=== PATIENT | male | born 1970 | race Two or more races ===

== ENCOUNTER 2025-03-13 16:20 | Outpatient (REF) | payer OTHER, SELFPAY | END 2025-03-13 16:21 | disposition home or self-care (01) | LOC: HO.SH 16:20 | PROVIDERS: Visit Provider Physician Assistant | DX: Z01.118 Encounter for examination of ears and hearing with other abnormal findings (principal); H90.3 Sensorineural hearing loss, bilateral | CPT/HCPCS: 92557 ==

== ENCOUNTER 2025-03-26 08:44 | Outpatient (AMB) | payer OTHER, SELFPAY ==
--- NOTE | 2025-03-26 08:46 | MHC.OFFVIS ---
Vital Signs 03/26/25 08:54 Height 5 ft 7.72 in Weight 212 lb BMI 32.5 BP 132/70 Blood Pressure Location Rt brachial Position Sitting Pulse 80 Pulse Source Pulse Oximeter Pulse Oximetry (%) 100 Oxygen Delivery Method Room Air Intake Visit Reasons: Lumbar back disease Intake Note: Pain today 01/06 Payment Analyst Required: Yes Payment Analyst Language: Supervisor Drying And Softening Services: Payment Analyst Present Payment Analyst Name: Martha #[id number] Information Interpreted: non-clinical & clinical Accompanied by: Self / Same As Patient Allergies No Known Allergies Allergy (Verified 03/26/25 08:51) Medication List - Last Reconciled 03/26/25 by Mela Leung, CONCRETE CONVEYOR OPERATOR ibuprofen 200 mg PO Q6H PRN HPI Comments Details: The patient is a 55-year-old male presenting with chronic low back pain. The pain is described as sharp and stabbing, primarily located in the mid and lower back, and has been present for several years. The patient reports difficulty with activities such as putting on socks and pants, and bending down due to the pain. Denies any radiation of back pain to his lower extremities. He does report separate right ankle pain s/p ankle surgery in 2006 in [place]. He attributes this to sports related injuries from many years of playing soccer and football. Patient reports he is starting physical therapy at [place] for right ankle pain and has been seen by Orthopedics for this. The patient has a history of a lumbar herniated disc diagnosed approximately five years ago, with no specific inciting injury reported. The patient has not undergone any imaging studies in the [place] since moving from [place] three years ago, where the last imaging was performed five years ago. The patient also has flat feet and has not used orthopedic shoes consistently, which may contribute to his symptoms. 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 The patient has no significant medical history and reports occasional alcohol consumption. He underwent surgery on his right tibia and fibula approximately 20 years ago in [place]. - Onset: Pain has been present for several years. - Quality: Described as sharp and stabbing. - Location: Primarily in the middle of the back. - Exacerbating factors: Bending, lifting heavy objects, and physical activities at work. - Relieving factors: Rest and ibuprofen. - Interference: Difficulty with putting on socks and pants, bending down. - Affect: Pain impacts daily activities such as dressing and bending. - Analgesia: Currently using ibuprofen for pain relief. Rest, activity modifications, heat therapy - Adverse Effects: No adverse effects from ibuprofen reported. - Activities of Daily Living: Pain affects ability to perform work-related tasks and daily activities. - Aberrant Drug Related Behaviors: No aberrant behaviors reported. [facility] Medical History (Updated 03/26/25 @ 12:22 by KATARZYNA Ramos) Chronic low back pain Lumbar disc herniation Surgical History (Updated 03/26/25 @ 09:08 by KATARZYNA Ramos) History of ankle surgery (~2006) Review of Systems Const Details: - Musculoskeletal: Reports sharp, stabbing back pain, difficulty bending, and pain with certain movements. Denies numbness or tingling. Chronic right ankle pain s/p surgery 2006. - Neurological: Denies numbness or tingling, weakness, bladder or bowel dysfunction or saddle anesthesia. All systems reviewed & are unremarkable except as noted in HPI and below Physical Exam Vital Signs: Last Vital Signs Pulse 80 03/26/25 08:54 BP 132/70 03/26/25 08:54 Pulse Ox 100 03/26/25 08:54 Oxygen Delivery Method Room Air 03/26/25 08:54 BMI result Body Mass Index 32.5 General: Appears afebrile. Alert and oriented. Mood and affect appropriate. Follows and participates in conversation appropriately. Respiratory effort is unlabored. No cough. Able to transition from sit to stand unassisted. Ambulates with normal heel strike and toe off on the left, right ankle pain with h/o previous ankle surgery. General: Yes no CVA tenderness Back/Spine/Pelvis Other: Limited lumbar ROM due to pain. Normal gait, no limping. Demonstrates 5/5 strength of quadriceps bilaterally as well as flexion/dorsiflexion of bilateral feet against resistance. 2+ pedal pulses bilaterally. Straight leg rise with dorsiflexion negative bilaterally. +2 patellar and +1 achilles reflexes bilaterally. Facet loading test positive bilaterally. Chase?s is negative bilaterally. No groin pain with I/E hip rotations. Valsalva maneuver negative. Back: no CVA tenderness Cervical Spine: cervical ROM normal, No cervical muscular tenderness, No Cervical spine tenderness and No step off deformity Thoracic/Lumbar Spine: thoracic and lumbar spine normal to inspection, No Thoracic/lumbar spine scar(s), Lasegue's sign negative, straight leg raise negative bilaterally, pain with thoraco-lumbar ROM, paraspinal muscle tenderness, thoraco-lumbar ROM limited, No thoracic spinal tenderness and lumbar spinal tenderness (L4-S1) Sacroiliac joints: bilaterally nontender Extrem General: Yes capillary refill normal, Yes no clubbing, cyanosis or edema and Yes no calf tenderness Right lower extremity: ankle (Well healed incisions with normal scarring) Details: normal to inspection, tenderness Location: of the lateral malleolus and of the medial malleolus and no edema; no swelling and no unusual warmth Results Reviewed Results Reviewed: XR THORACIC SPINE 03/26/25 CLINICAL INFORMATION: M54.6 - Pain in thoracic spine COMPARISON: None available. TECHNIQUE: AP, lateral and swimmer's projection. FINDINGS: Multilevel syndesmophyte formation and marginal osteophyte formation throughout the axial skeleton. Mild endplate sclerosis at multiple levels. There is no acute cortical disruption or gross malalignment. No lytic or blastic lesions IMPRESSION: Multilevel spondylosis without acute fracture or listhesis. XR LUMBAR SPINE 03/26/25 CLINICAL INFORMATION: Low back pain. TECHNIQUE: AP, oblique and lateral views. COMPARISON: None FINDINGS: Small marginal osteophyte formation and mild endplate sclerosis at multiple levels of the axial skeleton. Syndesmophyte formation L3-4. There is preservation of the intervertebral disc height. No acute cortical disruption or malalignment. No lytic or blastic lesions. Sacralized vertebra. Rudimentary rib, T12. IMPRESSION: Sacralized vertebra. No acute fracture or dislocation. Multilevel thoracolumbar spondylosis. Assessment & Plan Assessment & Plan (1) Chronic low back pain: Code(s): M54.50 - Low back pain, unspecified; G89.29 - Other chronic pain Category: Medical (2) Thoracic back pain: Code(s): M54.6 - Pain in thoracic spine Category: Medical (3) History of herniated intervertebral disc: Code(s): Z87.39 - Personal history of other diseases of the musculoskeletal system and connective tissue Category: Medical (4) Spondylosis of thoracolumbar spine: Code(s): M47.815 - Spondylosis without myelopathy or radiculopathy, thoracolumbar region Category: Medical Plan The plan includes initiating physical therapy as the first step in managing the patient's chronic low back pain, as conservative treatment is required before considering non-invasive interventional procedures. The patient will be referred to a physical therapy facility close to his home to accommodate his work schedule. Thoracic and lumbar spine xray taken after today's visit, noted for multilevel thoracolumbar spondylosis. The patient will continue using ibuprofen for pain management and will be prescribed lidocaine patches, pending insurance approval. Patient has pending PT for chronic right ankle pain with h/o ankle surgery and has underwent Orthopedic evaluation per patient. Follow-up will be scheduled after the completion of physical therapy to evaluate progress and discuss further treatment options if necessary. Patient was informed and verbally consented to the use of an ambient scribe for clinic note documentation during this visit. Orders: Orders PT Evaluation and Treatment Today G89.29 - Other chronic pain, M47.815 - Spondylosis without myelopathy or radiculopathy, thoracolumbar region, M54.50 - Low back pain, unspecified, M54.6 - Pain in thoracic spine, Z87.39 - Personal history of other diseases of the musculoskeletal system and connective tissue XR thoracic spine 3V Today M54.6 - Pain in thoracic spine XR lumbar spine 4V min Today G89.29 - Other chronic pain, M47.816 - Spondylosis without myelopathy or radiculopathy, lumbar region, M54.50 - Low back pain, unspecified Medications: New lidocaine 5% 1 patch topical DAILY 30 ea 1RF pain 30 days G89.29 - Other chronic pain, M47.816 - Spondylosis without myelopathy or radiculopathy, lumbar region, M54.50 - Low back pain, unspecified, M54.6 - Pain in thoracic spine Patient Instructions: I discussed with the patient the importance of starting physical therapy as a conservative treatment for his chronic low back pain before considering more interventional treatment options such as injections, peripheral nerve stimulation or nerve ablation procedures. We also talked about the need for x-rays to evaluate the current condition of his spine and the potential use of lidocaine patches for pain relief, pending insurance approval. I advised the patient to continue using ibuprofen and to follow up after completing physical therapy to assess his progress and discuss further treatment options. Coding Level of Care Code New Pt Level 4 (14158) Diagnoses Chronic low back pain M54.50; G89.29 Thoracic back pain M54.6 History of herniated intervertebral disc Z87.39 Spondylosis of thoracolumbar spine M47.815
[2025-03-26 08:54] VITALS: BP 132/70; PULSE 80; O2SAT 100; BMI 32.5
--- OUTSIDE RECORDS SUMMARY | 2025-03-26 09:14 | XMS_ITS | Clinical Summary ---
Author Organization [facility] Address [address] [place] [address] Care Team Providers Care Dairy Tester Name Role Phone Sarah Lizarraga PA-C Primary Care Provider Source Comments PLEASE NOTE, if this patient is a minor, it may be UNLAWFUL to discuss sensitive information that is contained in these records (such as FAMILY PLANNING, MENTAL HEALTH or SUBSTANCE ABUSE) with the minor patient's parent or other person without the patient's specific authorization.[facility] Allergies No known active allergies Medications acetaminophen (TYLENOL 8 HOUR) 650 mg CR tabletIndication s:Immunization due Take 650 mg by mouth every 8 (eight) hours as needed for pain Active lactase (LACTAID) 3,000 unit tabletIndication s:Routine general medical examination at a health care facility Take 2 Tablets by mouth 3 (three) times daily with meals 540 Tablet 4 11/10/2024 Active Active Problems Problem Noted Date Diagnosed Date Mixed hyperlipidemia 02/05/2025 Pre-diabetes 02/05/2025 H. pylori infection 10/202411/13/2024 Lumbar disc disease 05/11/2024 Hearing loss 05/11/2024 Overview (05/11/2024): Uses bilateral hearing aides 3yrs -- states it is genetic, runs in my family. Encounters Date Type Department Care Team Description 03/07/2025 7:40 AM EDT Telemedicine Visit [address] [phone] Sarah Lizarraga PA-C 03/07/2025 Interim Notes [address] [phone] Debo Graham MA 02/05/2025 9:00 AM EDT Telemedicine Visit [address] [phone] Sarah Lizarraga PA-C from Last 3 Months Immunizations Immunization Administration Dates Next Due Hep B,adult,adjuvanted (HEPLISAV) 06/15/2024,07/2024 Influenza (FLUBLOK),recombinant,injectable,preservative Free 05/11/2024 Pfizer COVID-19 (Comirnaty), Mrna, Lnp-s, Pf, Abebe-sucrose, 30 Mcg/0.3 Ml, 12yr+ 05/11/2024 Family History Medical History Relation Name Comments Unknown Father Breast cancer Mother No Known Problems Son x2 Relation Name Status Comments Father Alive Mother Alive Son x2 Social History Tobacco Use Types Packs/Day Years Used Date Smoking Tobacco: Never Passive Smoke Exposure: Never Smokeless Tobacco: Never Tobacco Cessation:Counseling Given: Not Answered Alcohol Use Standard Drinks/Week Comments Not Currently 0 (1 standard drink = 0.6 oz pur e alcohol) occ Social Connections Answer Date Recorded How often do you feel lonely or isolated from th ose around you? 1 02/05/2025 Financial Resource Strain Answer Date R ecorded Hard to pay for: Food 1 02/05/2025 Stress Answer Date Recorded Do you feel these kinds of stress these days? 1 02/05/2025 Physical Activity Answer Date Recorded Physical Activity 0 05/11/2024 Food Insecurity Answer Date Recorded Hard to pay for: Food 1 02/05/2025 Transportation Needs Answer Date Record ed Hard to pay for: Transportation 1 02/05/2025 Housing Stability Answer Date Recorded Hard to pay for: Rent/Mortgage payment 1 02/05/2025 Safety and Environment Answer Date Finn rded Safety 0 05/11/2024 Utilities Answer Date Recorded Hard to pay for: Utilities 1 02/05 Employment Answer Date Recorded Stress 0 05/11/2024 Sex and Gender Information Value Date Recorded Sex Assigned at Male 12/31/2023 7:47 AM PDT Legal Sex Male 7:46 AM PDT Gender Identity Male 12/31/2023 7:47 AM PDT Sexual Orientation Straight 12/31/2023 7: 47 AM PDT Last Filed Vital Signs Vital Sign Reading Time Taken Comments Blood Pressure 102/60 11/10/2024 2:58 PM EDT Pulse 98 11/10/2024 2:58 PM EDT Temperature 36.9 C (98.5 F) 11/10/2024 2:58 PM EDT Respiratory Rate 16 11/10/2024 2:58 PM EDT Oxygen Saturation 97% 11/10/2024 2:58 PM EDT Inhaled Oxygen Concentration - - Weight 112.5 kg (248 lb) 11/10/2024 2:58 PM EDT Height - - Body Mass Index - - Plan of Treatment Health Maintenance Due Date Last Done Comments Anxiety Screening [address] CT Colonography 02/09/2017 FIT/gFOBT 02/09/2017 Fecal DNA 02/09/2017 Flexible Sigmoidoscopy 02/09/2017 Imm-Pneumococcal 50+ (1 of 1 - PCV) 02/09/2022 Imm-Influenza (#1) 2025 05/11/2024 Imm-DTaP/Tdap/Td (1 - Tdap) 05/08/2025 Postponed from 02/09/1991 (Patient postponement) Imm-Zoster, Recombinant (1 of 2) 05/08/2025 Postponed from 02/09/2022 (Patient postponement) Dental BW 07/15/2025 07/13/2024 Dental Examination 07/15/2025 07/13/2024 Dental Perio Charting 07/15/2025 07/13/2024 Dental Prophy 08/04/2025 08/02/2024 Annual Wellness (Adult): Indicated (All Coverage) 11/10/2025 11/10/2024 Hypertension Screening (#1) 11/10/2025 Diabetes Screening 2026 2025, 0 2025, 11/11/2024, Additional history exists Tobacco Screening 03/07/2026 03/07/2025 Dental FMX/Pano 07/15/2029 07/13/2024 Lipid Screening 2030 2025, 10/28, 05/13/2024 Colonoscopy 01/30/2035 01/30/2025 Colorectal Cancer Screening 01/30/2035 [id number] Completed 05/11/2024 HIV Screening Completed 05/13/2024 Hepatitis C Screening Completed 05/14/2024, 024 Imm-Hepatitis B Completed 06/15/2024, 05/11/2024 Alcohol and Drug Screen Completed 02/05/2025, 05/11 Depression Annual Screen Completed 02/05/2025, 04/30 Procedures Procedure Name Priority Date/Time Associated Diagnosis Comments REFERRAL TO AUDIOLOGY Routine 03/13/2025 3:00 AM EDT Bilateral hearing loss, unspecified hearing loss type REFERRAL SCANNED DOCUMENT 03/07/2025 3:00 AM EDT LIPID PANEL Routine 2025 9:09 AM EDT Pre-diabetes HEMOGLOBIN GLYCOSYLATED A1C Routine 2025 9:09 AM EDT Pre-diabetes COMPREHENSIVE METABOLIC PANEL Routine 2025 9:09 AM EDT Pre-diabetes REFERRAL TO GASTROENTEROLOGY Routine 01/30/2025 3:00 AM EDT Epigastric pain Abdominal bloating Colon cancer screening HISTORIC COLONOSCOPY 01/30/2025 3:00 AM EDT REFERRAL TO ORTHOPEDICS Routine 01/24/20 3:00 AM EDT Achilles tendinitis of both lower extremities PROPHYLAXIS - ADULT Routine 08/02/2024 4 :20 PM EST Caries Fracture of crown, enamel, and dentin of tooth without pulp exposure Full INTRAORAL - COMP SERIES OF RADIOGRAPHIC IMAGES Routine 07/13/2024 4:00 PM EST Caries Fracture of crown, enamel, and dentin of tooth without pulp exposure Full COMP ORAL EVALUATION - NEW/ESTABLISHED PATIENT Routine 07/13/2024 4:00 PM EST [facility] HIV 1/2 AG & AB W/RFLX (4TH GEN) Routine 05/13/2024 9:44 AM EDT Physical exam HEPATITIS C AB W/RFLX HCV RNA, QT, RT PCR Routine 05/13/2024 9:43 AM EDT Physical exam from Last 3 Months or Most Recently Relevant to Health Maintenance Results * REFERRAL TO AUDIOLOGY (03/13/2025 3:00 AM EDT) 03/13/2025 3:00 AM EDT Sarah Lizarraga PA-C REFERRAL Final Result * REFERRAL SCANNED DOCUMENT (03/07/2025 3:00 AM EDT) 03/07/2025 3:00 AM EDT Sarah Lizarraga PA-C SCAN REFERRAL Final Result * (ABNORMAL) HEMOGLOBIN GLYCOSYLATED A1C Routine (2025 9:09 AM EDT) HEMOGLOBIN A1C 6.2(H) <5.7 % [facility] Comment: For someone without known diabetes, a hemoglobin A1c value between 5.7% and 6.4% is consistent with prediabetes and should be confirmed with a follow-up test. For someone with known diabetes, a value <7% indicates that their diabetes is well controlled. A1c targets should be individualized based on duration of diabetes, age, comorbid conditions, and other considerations. This assay result is consistent with an increased risk of diabetes. Currently, no consensus exists regarding use of hemoglobin A1c for diagnosis of diabetes for children. Blood Blood / Unknown 2025 9 :09 AM EDT 2025 9:11 AM EDT Narrative [facility] - 02/11/2025 7:30 AM EDT FASTING:YES Sarah Lizarraga PA-C LAB - BLOOD DRAW Edited Resu lt - Final [facility] [address] [address], [facility] [address] [phone] * (ABNORMAL) LIPID PANEL Routine (2025 9:09 AM EDT) CHOLESTEROL, TOTAL 234(H) <200 mg/dL [facility] HDL CHOLESTEROL 42 > OR = 40 mg/dL [facility] TRIGLYCERIDES 162(H) <150 mg/dL [facility] LDL-CHOLESTEROL 161(H) 99 mg/dL (calc) [facility] Comment: Reference range: <100 Desirable range <100 mg/dL for primary prevention; <70 mg/dL for patients with CHD or diabetic patients with > or = 2 CHD risk factors. LDL-C is now calculated using the [place] calculation, which is a validated novel method providing better accuracy than the Friedewald equation in the estimation of LDL-C. Asaf CARDONA et al. MAHNAZ. 2013;310(19): 2651-5280 (http://education.[employer]/faq/UWV450) CHOL/HDLC RATIO 5.6(H) <5.0 (calc) [facility] NON-HDL CHOLESTEROL 192(H) <130 mg/dL (calc) [facility] Comment: For patients with diabetes plus 1 major ASCVD risk factor, treating to a non-HDL-C goal of <100 mg/dL (LDL-C of <70 mg/dL) is considered a therapeutic option. Blood Blood / Unknown 2025 9 :09 AM EDT 2025 9:11 AM EDT Narrative [facility] - 02/11/2025 7:30 AM EDT FASTING:YES us Sarah Lizarraga PA-C LAB - BLOOD DRAW Final Resul t [facility] [address] [place] [phone], [facility] [address] [place] [phone] * (ABNORMAL) COMPREHENSIVE METABOLIC PANEL Routine (2025 9:09 AM EDT) GLUCOSE 110(H) 65 - 99 mg/dL [facility] Comment: Fasting reference interval For someone without known diabetes, a glucose value between 100 and 125 mg/dL is consistent with prediabetes and should be confirmed with a follow-up test. UREA NITROGEN (BUN) 13 7 - 25 mg/dL [facility] CREATININE (blood) 0.94 0.70 - 1.30 mg/dL [facility] EGFR 97 > OR = 60 mL/min/1. 73m2 [facility] BUN/CREATININE RATIO SEE NOTE: [facility] Comment: Not Reported: BUN and Creatinine are within reference range. SODIUM 141 135 - 146 mmol/L [facility] POTASSIUM 4.5 3.5 - 5.3 mmol/L [facility] CHLORIDE 104 98 - 110 mmol/L [facility] CARBON DIOXIDE 28 20 - 32 mmol/L [facility] CALCIUM 8.9 8.6 - 10.3 mg/dL [facility] PROTEIN, TOTAL 7.2 6.1 - 8.1 g/dL [facility] ALBUMIN 4.6 3.6 - 5.1 g/dL [facility] GLOBULIN 2.6 1.9 - 3.7 g/dL (calc) [facility] ALBUMIN/GLOBULI N RATIO 1.8 1.0 - 2.5 (calc) [facility] BILIRUBIN, TOTAL 0.6 0.2 - 1.2 mg/dL [facility] ALKALINE PHOSPHATASE 66 35 - 144 U/L [facility] AST 14 10 - 35 U/L [facility] ALT 22 9 - 46 U/L [facility] Blood Blood / Unknown 2025 9 :09 AM EDT 2025 9:11 AM EDT Narrative [facility] - 02/11/2025 7:30 AM EDT FASTING:YES us Sarah Lizarraga PA-C LAB - BLOOD DRAW Final Resul t [facility] [address] [address], [facility] [address] [phone] * HISTORIC COLONOSCOPY (01/30/2025 3:00 AM EDT) 01/30/2025 3:00 AM EDT us Sarah Lizarraga PA-C PROCEDURES Final Result * REFERRAL TO GASTROENTEROLOGY (01/30/2025 3:00 AM EDT) 01/30/2025 3:00 AM EDT us Sarah Lizarraga PA-C REFERRAL Final Result * REFERRAL TO ORTHOPEDICS (01/23/2025 3:00 AM EDT) 01/23/2025 3:00 AM EDT Sarah Rodgersmaddie GRAF-Ara REFERRAL Final Result * HIV 1/2 AG & AB W/RFLX (4TH GEN) (05/13/2024 9:44 AM EDT) HIV AG/AB, 4TH GEN NON-REAC TIVE NON-REAC TIVE [facility] Comment: HIV-1 antigen and HIV-1/HIV-2 antibodies were not detected. There is no laboratory evidence of HIV infection. PLEASE NOTE: This information has been disclosed to you from records whose confidentiality may be protected by state law. If your state requires such protection, then the state law prohibits you from making any further disclosure of the information without the specific written consent of the person to whom it pertains, or as otherwise permitted by law. A general authorization for the release of medical or other information is NOT sufficient for this purpose. For additional information please refer to http://education.Ledzworld.Readbug/faq/AGM734 (This link is being provided for informational/ educational purposes only.) The performance of this assay has not been clinically validated in patients less than 2 years old. Blood Blood / Unknown 05/13/2024 9 :44 AM EDT 05/13/2024 9:45 AM EDT Narrative [facility] - 05/14/2024 4:38 AM EDT FASTING:YES Thomas Marky FNP LAB - BLOOD DRAW Final Resul t [facility] [address] [address], [facility] [address] [phone] * HEPATITIS C AB W/RFLX HCV RNA, QT, RT PCR (05/13/2024 9:43 AM EDT) HEPATITIS C ANTIBODY NON-REACT DARVIN NON-REACT DARVIN [facility] Comment: HCV antibody was non-reactive. There is no laboratory evidence of HCV infection. In most cases, no further action is required. However, if recent HCV exposure is suspected, a test for HCV RNA (test code 45126) is suggested. For additional information please refer to http://education.[employer] Direct/faq/GUT41t0 (This link is being provided for informational/ educational purposes only.) Blood Blood / Unknown 05/13/2024 9 :43 AM EDT 05/13/2024 9:43 AM EDT Narrative [facility] - 05/14/2024 5:38 AM EDT FASTING:YES Thomas Negro [employer] LAB - BLOOD DRAW Final Resul t [facility] [address] [address], [facility] [address] [phone] from Last 3 Months or Most Recently Relevant to Health Maintenance [place] INCLUDE 234 BEDS AT [facility] DENTAL [employer] Member Subscriber Plan / Payer (Ef fective 2024-Present) Name:Reginald Cheng Relation to Subscriber:Self Name:Kristopher Reginald Larsen Payer ID:[id number] Type:Indemnity Address: [facility] [address] [place] [address] Care Teams Dairy Tester Relationship Specialty Start Date End Date Sarah Lizarraga PA-C [address] [place] [phone] PCP - General Internal Medicine 12/14/24
--- OUTSIDE RECORDS SUMMARY | 2025-03-26 09:14 | XMS_ITS | Clinical Summary ---
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 for 14 days 025 Active Dairy-Aid 3,000 unit tablet 025 Active ondansetron ODT (ZOFRAN-ODT) 4 mg disintegrating tablet TAKE 1 TABLET BY MOUTH EVERY 8 HOURS NEEDED FOR NAUSEA AND VOMITING FOR 10 DAYS Active polyethylene glycol (Golytely) 236-22.74-6.74 -5.86 gram solution Take 4L by mouth once for one dose. May substitue any PEG. Starting at 6PM the night before your procedure drink 1 8oz glasses at your own pace until you complete half of the gallon. Finish 2nd half of the gallon 5 hours before your procedure. 4000 mL Active Additional Information Patient not taking.Reported on 03/07/2025 bisacodyL (DULCOLAX) 5 mg EC tablet Take 2 tablets by mouth right before beginning bowel prep. See instructions provided by the office 2 tablet Active Additional Information Patient not taking.Reported on 03/07/2025 lidocaine (XYLOCAINE) 5 % ointment Apply topically 2 (two) times a day if needed for mild pain. 35.44 g 025 2025 Active lidocaine (XYLOCAINE) 2 % gel Apply topically 2 (two) times a day if needed for mild pain. 30 mL 025 2024 Discontinued bisacodyL (DULCOLAX) 10 mg suppository Insert 1 suppository (10 mg total) into the rectum 1 (one) time each day for 12 days. 12 suppository 025 2024 Discontinued bisacodyL (DULCOLAX) 10 mg suppository Insert 1 suppository (10 mg total) into the rectum 1 (one) time each day for 12 days. 12 suppository 025 2024 lidocaine (XYLOCAINE) 2 % gel Apply topically 2 (two) times a day if needed for mild pain. 30 mL 025 2024 Discontinued( Cost of medication) Encounters Date Type Department Care Team Description 03/14/2025 4:30 PM EDT Evaluation [address] [phone] Matthew Verde M, PT Achilles tendinitis of both lower extremities; Equinus contracture of left ankle; Chronic pain of right ankle 03/13/2025 9:07 AM EDT - 03/13/2025 11:08 AM EDT Emergency [facility] Emergency [address] [place] [phone] Eliazar Jarquin MD Hemorrhoids, unspecified hemorrhoid type (Primary Dx) Discharge Disposition: Home or Self Care 03/13/2025 Telephone Gastroenterology [address] [place] [phone] Amanda Catalan DO ER follow up 03/07/2025 1:30 PM EDT Office Visit Gastroenterology [facility] [address] [place] [phone] Amanda Catalan DO Bleeding internal hemorrhoids (Primary Dx) 01/30/2025 3:22 PM EDT Anesthesia Event [facility] Endoscopy [address] [place] [phone] Naveed Cavanaugh DO 01/30/2025 1:07 PM EDT - 01/30/2025 11:59 PM EDT Hospital Encounter [facility] Endoscopy [address] [place] [phone] Amanda Catalan DO Johnson, Lorraine, CRNA Korobkov, Vitaliy, DO Esophageal dysphagia; Helicobacter pylori (H. pylori) infection; Rectal bleeding Discharge Disposition: Home or Self Care 01/30/2025 Telephone Gastroenterology [facility] 175 [facility] 175 [facility] [address] [place] [address] Josephine Romero MA APPOINTMENT 01/23/2025 2:45 PM EDT Consult Orthopedic Surgery [facility] 250 175 [facility] [address] [place] [phone] Alfonso Buck, DPM Achilles tendinitis of both lower extremities (Primary Dx); Pes planus of both feet; Equinus contracture of left ankle; Plantar fasciitis from Last 3 Months Social History Tobacco Use Types Packs/Day Years Used Date Smoking Tobacco: Never Smokeless Tobacco: Never Tobacco Cessation:Counseling Given: Not Answered Alcohol Use Standard Drinks/Week Comments Never 0 (1 standard drink = 0.6 oz pur e alcohol) Interpersonal Safety Answer Date Record ed Physical Abuse 01/30/2025 Verbal Abuse 01/30/2025 Sex and Gender Information Value Date Recorded Sex Assigned at Not on file Legal Sex Male 12:58 PM EDT Gender Identity Male 11/20/2024 2:59 PM EDT Sexual Orientation Straight 11/20/2024 2: 59 PM EDT Obstetrics History Last Filed Vital Signs Vital Sign Reading Time Taken Comments Blood Pressure 112/80 03/13/2025 8:28 AM EDT Pulse 94 03/13/2025 8:28 AM EDT Temperature 36.8 C (98.3 F) 03/13/2025 8:28 AM EDT Respiratory Rate 17 03/13/2025 8:28 AM EDT Oxygen Saturation 97% 03/13/2025 8:28 AM EDT Inhaled Oxygen Concentration - - Weight 97 kg (213 lb 13.5 oz) 03/13/2025 8:28 AM EDT Height 172 cm (5' 7.72 ) 03/13/2025 8:28 AM EDT Body Mass Index 32.79 03/13/2025 8:28 AM EDT Plan of Treatment Upcoming Encounters Date Type Department Care Team (Late st Contact Info) Description 04/05/2025 5:30 PM EDT Treatment [facility] [address] [phone] Bobby Velasquez, RN SPINE 04/12/2025 5:30 PM EDT Treatment [facility] [address] [phone] Bobby Velasquez, RN SPINE 04/17/2025 5:30 PM EDT Treatment [facility] [address] [phone] Bobby Velasquez, RN SPINE 04/19/2025 5:30 PM EDT Treatment [facility] [address] [phone] Bobby Velasquez, RN SPINE 04/23/2025 5:30 PM EDT Treatment [facility] [address] [phone] Matthew Verde, PT [address] [place] [address] 04/25/2025 5:30 PM EDT Treatment [facility] [address] [phone] Matthew Verde, PT [address] [place] [address] 07/05/2025 8:50 AM EST Office Visit Gastroenterology [facility] 175 [facility] [address] [phone] Amanda Catalan DO [address] [address] Health Maintenance Due Date Last Done Comments DTaP,Tdap,and Td Vaccines (1 - Tdap) 02/09/1991 Pneumococcal Vaccine: 50+ Years (1 of 1 - PCV) 02/09/2022 Zoster Vaccines (1 of 2) 02/09/2022 Depression Screening 08/30/2024 HIV Screening 11/15/2024 Social Influencers of Health Screening 11/15/2024 Influenza Vaccine (#1) 2025 05/11/2024 Colorectal Cancer Screening: Colonoscopy 01/30/2030 01/30/2025 Cholesterol Screening (Lipid Panel) 2030 2025, 2025, 11/11/2024, Additional history exists COVID-19 Vaccine Completed 05/11/2024 Hepatitis C Screening Completed 05/13/2024 Hepatitis B Vaccines Completed 06/15/2024, 05/11/20 24 HIB Vaccines Aged Out No longer eligi ble based on patient's age to complete this topic HPV Vaccines Aged Out No longer eligi ble based on patient's age to complete this topic Hepatitis A Vaccines Aged Out No long er eligible based on patient's age to complete this topic IPV Vaccines Aged Out No longer eligi ble based on patient's age to complete this topic MMR Vaccines Aged Out No longer eligi ble based on patient's age to complete this topic Meningococcal ACWY Vaccine Aged Out N o longer eligible based on patient's age to complete this topic Meningococcal B Vaccine Aged Out No l onger eligible based on patient's age to complete this topic RSV Immunization Patients Under 20 months Aged Out No longer eligible based on patient's age to complete this topic Varicella Vaccines Aged Out No longer eligible based on patient's age to complete this topic Goals Goal Patient Goal Type Associated Problems Recent Progress Patient-Stated? 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 Procedures Procedure Name Priority Date/Time Associated Diagnosis Comments COLONOSCOPY Routine 01/30/2025 3:44 PM EDT Esophageal dysphagia Helicobacter pylori (H. pylori) infection Rectal bleeding EGD Routine 01/30/2025 3:44 PM EDT Esophageal dysphagia Helicobacter pylori (H. pylori) infection Rectal bleeding TISSUE EXAM Routine 01/30/2025 3:28 PM EDT Esophageal dysphagia Helicobacter pylori (H. pylori) infection Rectal bleeding from Last 3 Months Results * COLONOSCOPY [facility]est[facility] - MAC[facility] (01/30/2025 3:44 PM EDT) Anatomical Region Laterality Modality Endoscopy 01/30/2025 3:19 PM EDT Impressions 01/30/2025 3:43 PM EDT - Hemorrhoids found on perianal exam. - Non-bleeding internal hemorrhoids. - One 4 mm polyp in the ascending colon, removed with a cold snare. Resected and retrieved. - The examination was otherwise normal on direct and retroflexion views. Recommendation: - - Discharge patient to home. - High fiber diet. - Continue present medications. - Await pathology results. - Repeat colonoscopy for surveillance based on pathology results. Narrative 01/30/2025 3:43 PM EDT [facility] GI Patient Name: Reginald Larsen Procedure Date: 01/30/2025 3:19 PM Date of : 1970 Age: 54 Gender: Male Note Status: Finalized Attending MD: Amanda Catalan DO, [id number] Procedure Date No Time: 01/30/2025 Procedure: Colonoscopy Indications: Hematochezia Providers: Amanda Catalan DO Referring MD: Sarah Lizarraga PA-C Medicines: Monitored Anesthesia Care Complications: No immediate complications. Estimated blood loss: Minimal. Estimated Blood Loss: Estimated blood loss was minimal. Procedure: Pre-Anesthesia Assessment: - - Prior to the procedure, a History and Physical was performed, and patient medications and allergies were reviewed. The patient is competent. The risks and benefits of the procedure and the sedation options and risks were discussed with the patient. All questions were answered and informed consent was obtained. Patient identification and proposed procedure were verified by the physician, the nurse, the anesthesiologist, the tire cord weaver and the hvac operations technician in the pre-procedure area in the endoscopy suite. Mental Status Examination: alert and oriented. Airway Examination: normal oropharyngeal airway and neck mobility. Respiratory Examination: clear to auscultation. CV Examination: normal. Prophylactic Antibiotics: The patient does not require prophylactic antibiotics. Prior Anticoagulants: The patient has taken no anticoagulant or antiplatelet agents. ASA Grade Assessment: II - A patient with severe systemic disease. After reviewing the risks and benefits, the patient was deemed in satisfactory condition to undergo the procedure. The anesthesia plan was to use monitored anesthesia care (MAC). Immediately prior to administration of medications, the patient was re-assessed for adequacy to receive sedatives. The heart rate, respiratory rate, oxygen saturations, blood pressure, adequacy of pulmonary ventilation, and response to care were monitored throughout the procedure. The physical status of the patient was re-assessed after the procedure. After I obtained informed consent, the scope was passed under direct vision. Throughout the procedure, the patient's blood pressure, pulse, and oxygen saturations were monitored continuously.The Olympus Pediatric Colonoscope was introduced through the anus and advanced to the cecum, identified by appendiceal orifice and ileocecal valve. The colonoscopy was performed without difficulty. The patient tolerated the procedure well. The quality of the bowel preparation was good. Findings: Hemorrhoids were found on perianal exam. Non-bleeding internal hemorrhoids were found during retroflexion. The hemorrhoids were Grade II (internal hemorrhoids that prolapse but reduce spontaneously). A 4 mm polyp was found in the ascending colon. The polyp was sessile. The polyp was removed with a cold snare. Resection and retrieval were complete. Verification of patient identification for the specimen was done. Estimated blood loss was minimal. The exam was otherwise without abnormality on direct and retroflexion views. Procedure Code(s): --- Professional --- 44872, Colonoscopy, flexible; with removal of tumor(s), polyp(s), or other lesion(s) by snare technique Diagnosis Code(s): --- Professional --- K92.1, Melena (includes Hematochezia) D12.2, Benign neoplasm of ascending colon K64.1, Second degree hemorrhoids CPT copyright 2020 [employer]. All rights reserved. The codes documented in this report are preliminary and upon medical biller coder review may be revised to meet current compliance requirements. AMANDA Catalan DO 01/30/2025 3:43:38 PM This report has been signed electronically.Amanda Catalan DO Number of Addenda: 0 Note Initiated On: 01/30/2025 3:19 PM Scope Withdrawal Time: 0 hours 6 minutes 52 seconds Scope In: 3:34:03 PM Scope Out: 3:42:04 PM Endoscopy Department at [facility] - [address] [place] [phone] Procedure Note Amanda Catalan DO - 01/30/2025 [facility] GI Patient Name: Reginald Larsen Procedure Date: 01/30/2025 3:19 PM Date of : 1970 Age: 54 Gender: Male Note Status: Finalized Attending MD: Amanda Catalan DO, [id number] Procedure Date No Time: 01/30/2025 Procedure: Colonoscopy Indications: Hematochezia Providers: Amanda Catalan DO Referring MD: Sarah Lizarraga PA-C Medicines: Monitored Anesthesia Care Complications: No immediate complications. Estimated blood loss: Minimal. Estimated Blood Loss: Estimated blood loss was minimal. Procedure: Pre-Anesthesia Assessment: - - Prior to the procedure, a History and Physicalwas performed, and patient medications and allergieswere reviewed. The patient is competent. The risks and benefits of the procedure and the sedation optionsand risks were discussed with the patient. Allquestions were answered and informed consent was obtained. Patient identification and proposed procedure were verified by the physician, the nurse, the anesthesiologist, the tire cord weaver and thetechnician in the pre-procedure area in the endoscopy suite. Mental Status Examination: alert and oriented.Airway Examination: normal oropharyngeal airway and neck mobility. Respiratory Examination: clear to auscultation. CV Examination: normal. Prophylactic Antibiotics: The patient does not requireprophylactic antibiotics. Prior Anticoagulants: The patient has taken no anticoagulant or antiplatelet agents. ASA Grade Assessment: II - A patient with severesystemic disease. After reviewing the risks and benefits,the patient was deemed in satisfactory condition to undergo the procedure. The anesthesia plan was touse monitored anesthesia care (MAC). Immediately priorto administration of medications, the patient was re-assessed for adequacy to receive sedatives. The heart rate, respiratory rate, oxygen saturations, blood pressure, adequacy of pulmonary ventilation,and response to care were monitored throughout the procedure. The physical status of the patient was re-assessed after the procedure. After I obtained informed consent, the scope was passed under direct vision. Throughout theprocedure, the patient's blood pressure, pulse, and oxygen saturations were monitored continuously.The Olympus Pediatric Colonoscope was introduced through theanus and advanced to the cecum, identified byappendiceal orifice and ileocecal valve. The colonoscopy was performed without difficulty. The patient tolerated the procedure well. The quality of the bowel preparation was good. Findings: Hemorrhoids were found on perianal exam. Non-bleeding internal hemorrhoids were found during retroflexion. The hemorrhoids were Grade II(internal hemorrhoids that prolapse but reducespontaneously). A 4 mm polyp was found in the ascending colon. The polyp was sessile. The polyp was removed with acold snare. Resection and retrieval were complete. Verification of patient identification for the specimen was done. Estimated blood loss wasminimal. The exam was otherwise without abnormality ondirect and retroflexion views. Procedure Code(s): --- Professional --- 20028, Colonoscopy, flexible; with removal of tumor(s), polyp(s), or other lesion(s) by snare technique Diagnosis Code(s): --- Professional --- K92.1, Melena (includes Hematochezia) D12.2, Benign neoplasm of ascending colon K64.1, Second degree hemorrhoids CPT copyright 2020 [employer]. All rights reserved. The codes documented in this report are preliminary and upon medical biller coder reviewmay be revised to meet current compliance requirements. AMANDA Catalan DO 01/30/2025 3:43:38 PM This report has been signed electronically.Amanda Catalan DO Number of Addenda: 0 Note Initiated On: 01/30/2025 3:19 PM Scope Withdrawal Time: 0 hours 6 minutes 52 seconds Scope In: 3:34:03 PM Scope Out: 3:42:04 PM Endoscopy Department at [facility] - [address] [place] [phone] IMPRESSION: - Hemorrhoids found on perianal exam. - Non-bleeding internal hemorrhoids. - One 4 mm polyp in the ascending colon, removedwith a cold snare. Resected and retrieved. - The examination was otherwise normal on directand retroflexion views. Recommendation: - - Discharge patient to home. - High fiber diet. - Continue present medications. - Await pathology results. - Repeat colonoscopy for surveillance based on pathology results. Amanda Catalan DO GI~PROCEDURE ORDERABLES Final Re sult * EGD Anesthesia - MAC; [facility] (01/30/2025 3:44 PM EDT) Anatomical Region Laterality Modality Endoscopy 01/30/2025 3:19 PM EDT Impressions 01/30/2025 3:31 PM EDT - Erythema in the mid esophagus. Biopsied. - Erythematous mucosa in the stomach. Biopsied. - Normal examined duodenum. Recommendation: - Discharge patient to home. - Resume previous diet. - Continue present medications. - Await pathology results. Narrative 01/30/2025 3:31 PM EDT [facility] GI Patient Name: Reginald Larsen Procedure Date: 01/30/2025 3:19 PM Date of : 1970 Age: 54 Gender: Male Note Status: Finalized Attending MD: Amanda Catalan DO, [id number] Procedure Date No Time: 01/30/2025 Procedure: Upper GI endoscopy Indications: Functional Dyspepsia Providers: Amanda Catalan DO Referring MD: Sarah Lizarraga PA-C Medicines: Monitored Anesthesia Care Complications: No immediate complications. Estimated blood loss: Minimal. Estimated Blood Loss: Estimated blood loss was minimal. Procedure: Pre-Anesthesia Assessment: - - Prior to the procedure, a History and Physical was performed, and patient medications and allergies were reviewed. The patient is competent. The risks and benefits of the procedure and the sedation options and risks were discussed with the patient. All questions were answered and informed consent was obtained. Patient identification and proposed procedure were verified by the physician, the nurse, the anesthesiologist, the tire cord weaver and the hvac operations technician in the pre-procedure area in the endoscopy suite. Mental Status Examination: alert and oriented. Airway Examination: normal oropharyngeal airway and neck mobility. Respiratory Examination: clear to auscultation. CV Examination: normal. Prophylactic Antibiotics: The patient does not require prophylactic antibiotics. Prior Anticoagulants: The patient has taken no anticoagulant or antiplatelet agents. ASA Grade Assessment: II - A patient with severe systemic disease. After reviewing the risks and benefits, the patient was deemed in satisfactory condition to undergo the procedure. The anesthesia plan was to use monitored anesthesia care (MAC). Immediately prior to administration of medications, the patient was re-assessed for adequacy to receive sedatives. The heart rate, respiratory rate, oxygen saturations, blood pressure, adequacy of pulmonary ventilation, and response to care were monitored throughout the procedure. The physical status of the patient was re-assessed after the procedure. - - Prior to the procedure, a History and Physical was performed, and patient medications and allergies were reviewed. The patient is competent. The risks and benefits of the procedure and the sedation options and risks were discussed with the patient. All questions were answered and informed consent was obtained. Patient identification and proposed procedure were verified by the physician, the nurse, the anesthesiologist, the tire cord weaver and the hvac operations technician in the pre-procedure area in the endoscopy suite. Mental Status Examination: alert and oriented. Airway Examination: normal oropharyngeal airway and neck mobility. Respiratory Examination: clear to auscultation. CV Examination: normal. Prophylactic Antibiotics: The patient does not require prophylactic antibiotics. Prior Anticoagulants: The patient has taken no anticoagulant or antiplatelet agents. ASA Grade Assessment: II - A patient with severe systemic disease. After reviewing the risks and benefits, the patient was deemed in satisfactory condition to undergo the procedure. The anesthesia plan was to use monitored anesthesia care (MAC). Immediately prior to administration of medications, the patient was re-assessed for adequacy to receive sedatives. The heart rate, respiratory rate, oxygen saturations, blood pressure, adequacy of pulmonary ventilation, and response to care were monitored throughout the procedure. The physical status of the patient was re-assessed after the procedure. After obtaining informed consent, the endoscope was passed under direct vision. Throughout the procedure, the patient's blood pressure, pulse, and oxygen saturations were monitored continuously. The Olympus Gastroscope was introduced through the mouth, and advanced to the third part of duodenum. The upper GI endoscopy was accomplished without difficulty. The patient tolerated the procedure well. Findings: Diffuse mild erythema was found in the mid esophagus. Biopsies were taken with a cold forceps for histology. Estimated blood loss was minimal. Diffuse moderately erythematous mucosa without bleeding was found in the stomach. Biopsies were taken with a cold forceps for histology. Estimated blood loss was minimal. The examined duodenum was normal. Procedure Code(s): --- Professional --- 13491, Esophagogastroduodenoscopy, flexible, transoral; with biopsy, single or multiple Diagnosis Code(s): --- Professional --- K22.89, Other specified disease of esophagus K31.89, Other diseases of stomach and duodenum K30, Functional dyspepsia CPT copyright 2020 [employer]. All rights reserved. The codes documented in this report are preliminary and upon medical biller coder review may be revised to meet current compliance requirements. AMANDA Catalan DO 01/30/2025 3:31:39 PM This report has been signed electronically.Amanda Catalan DO Number of Addenda: 0 Note Initiated On: 01/30/2025 3:19 PM Scope In: Scope Out: Endoscopy Department at [facility] - [address] [place] [phone] Procedure Note Amanda Catalan DO - 01/30/2025 [facility] GI Patient Name: Reginald Larsen Procedure Date: 01/30/2025 3:19 PM Date of : 1970 Age: 54 Gender: Male Note Status: Finalized Attending MD: Amanda Catalan DO, [id number] Procedure Date No Time: 01/30/2025 Procedure: Upper GI endoscopy Indications: Functional Dyspepsia Providers: Amanda Catalan DO Referring MD: Sarah Lizarraga PA-C Medicines: Monitored Anesthesia Care Complications: No immediate complications. Estimated blood loss: Minimal. Estimated Blood Loss: Estimated blood loss was minimal. Procedure: Pre-Anesthesia Assessment: - - Prior to the procedure, a History and Physicalwas performed, and patient medications and allergieswere reviewed. The patient is competent. The risks and benefits of the procedure and the sedation optionsand risks were discussed with the patient. Allquestions were answered and informed consent was obtained. Patient identification and proposed procedure were verified by the physician, the nurse, the anesthesiologist, the tire cord weaver and thetechnician in the pre-procedure area in the endoscopy suite. Mental Status Examination: alert and oriented.Airway Examination: normal oropharyngeal airway and neck mobility. Respiratory Examination: clear to auscultation. CV Examination: normal. Prophylactic Antibiotics: The patient does not requireprophylactic antibiotics. Prior Anticoagulants: The patient has taken no anticoagulant or antiplatelet agents. ASA Grade Assessment: II - A patient with severesystemic disease. After reviewing the risks and benefits,the patient was deemed in satisfactory condition to undergo the procedure. The anesthesia plan was touse monitored anesthesia care (MAC). Immediately priorto administration of medications, the patient was re-assessed for adequacy to receive sedatives. The heart rate, respiratory rate, oxygen saturations, blood pressure, adequacy of pulmonary ventilation,and response to care were monitored throughout the procedure. The physical status of the patient was re-assessed after the procedure. - - Prior to the procedure, a History and Physicalwas performed, and patient medications and allergieswere reviewed. The patient is competent. The risks and benefits of the procedure and the sedation optionsand risks were discussed with the patient. Allquestions were answered and informed consent was obtained. Patient identification and proposed procedure were verified by the physician, the nurse, the anesthesiologist, the tire cord weaver and thetechnician in the pre-procedure area in the endoscopy suite. Mental Status Examination: alert and oriented.Airway Examination: normal oropharyngeal airway and neck mobility. Respiratory Examination: clear to auscultation. CV Examination: normal. Prophylactic Antibiotics: The patient does not requireprophylactic antibiotics. Prior Anticoagulants: The patient has taken no anticoagulant or antiplatelet agents. ASA Grade Assessment: II - A patient with severesystemic disease. After reviewing the risks and benefits,the patient was deemed in satisfactory condition to undergo the procedure. The anesthesia plan was touse monitored anesthesia care (MAC). Immediately priorto administration of medications, the patient was re-assessed for adequacy to receive sedatives. The heart rate, respiratory rate, oxygen saturations, blood pressure, adequacy of pulmonary ventilation,and response to care were monitored throughout the procedure. The physical status of the patient was re-assessed after the procedure. After obtaining informed consent, the endoscope was passed under direct vision. Throughout theprocedure, the patient's blood pressure, pulse, and oxygen saturations were monitored continuously. TheOlympus Gastroscope was introduced through the mouth, and advanced to the third part of duodenum. The upperGI endoscopy was accomplished without difficulty. The patient tolerated the procedure well. Findings: Diffuse mild erythema was found in the midesophagus. Biopsies were taken with a cold forceps forhistology. Estimated blood loss was minimal. Diffuse moderately erythematous mucosa without bleeding was found in the stomach. Biopsies weretaken with a cold forceps for histology. Estimated blood loss was minimal. The examined duodenum was normal. Procedure Code(s): --- Professional --- 07433, Esophagogastroduodenoscopy, flexible, transoral; with biopsy, single or multiple Diagnosis Code(s): --- Professional --- K22.89, Other specified disease of esophagus K31.89, Other diseases of stomach and duodenum K30, Functional dyspepsia CPT copyright 2020 [employer]. All rights reserved. The codes documented in this report are preliminary and upon medical biller coder reviewmay be revised to meet current compliance requirements. AMANDA Catalan DO 01/30/2025 3:31:39 PM This report has been signed electronically.Amanda Catalan DO Number of Addenda: 0 Note Initiated On: 01/30/2025 3:19 PM Scope In: Scope Out: Endoscopy Department at [facility] - [address] [place] [id number] IMPRESSION: - Erythema in the mid esophagus. Biopsied. - Erythematous mucosa in the stomach. Biopsied. - Normal examined duodenum. Recommendation: - Discharge patient to home. - Resume previous diet. - Continue present medications. - Await pathology results. Amanda Catalan DO GI~PROCEDURE ORDERABLES Final Re sult * Tissue exam (01/30/2025 3:28 PM EDT) Final Diagnosis A. Stomach, random sites, biopsy: - Gastric antral and oxyntic type mucosa with patchy chronic gastritis and intestinal metaplasia, negative for dysplasia. - No active gastritis identified. - No Helicobacter pylori identified on hematoxylin and eosin stained sections. B. Esophagus, biopsy: - A minute detached fragment of gastric mucosa with intestinal metaplasia is present, negative for dysplasia (See note.) - Esophageal squamous mucosa with focal reactive changes. Note: Multiple additional levels are examined. Based on histologic findings alone, it is not entirely clear whether the detached fragment gastric mucosa with intestinal metaplasia is derived from this site or if it represents an artifact of specimen procurement/proce ssing. Per discussion with Dr. Dexter Catalan, the endoscopic findings were not suggestive of Mtz esophagus and interpretation as a procurement/proce ssing artifact if favored. No dysplasia is seen. C. Polyp, ascending colon, polypectomy: - Tubular adenoma. (See note.) Note: Multiple additional levels are examined. 02/05/2025 8:22 AM [facility] Gross Description A. Stomach, random gastric biopsies: Labeled random ga stomach . Received in formalin, are four irregular soft to rubbery, stephen-brown tissue fragments, approximately ranging from 0.35 cm to 0.6 cm in greatest diameters, which are wrapped in paper and submitted in toto in one cassette, four pieces, multiple levels. B. Esophagus, biopsies: Labeled esophagus bx's . Received in formalin are two soft to rubbery, white-pink tissue fragments, approximately measuring 0.3 cm and 0.4 cm in greatest diameters, which are wrapped in paper and submitted in toto in one cassette, two pieces, multiple levels. C. Large Intestine, Right/Ascending Colon, polyp x1: Labeled ascend colon polyp x 1 . Received in formalin, is an approximately 0.5 cm in greatest diameter soft to rubbery, stephen tissue fragment, inked green at the margin, which is wrapped in paper and submitted in toto in one cassette, one piece, multiple levels. hs/DG 02/05/2025 8:22 AM [facility] Disclaimer Unless otherwise specified, all tissue is 10% NB formalin fixed and paraffin embedded. 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
== END 2025-03-26 09:33 | disposition home or self-care (01) ==
LOC: HO.PMC 08:45
PROVIDERS: PCP Physician Assistant; Referring Provider Physician Assistant; Visit Provider Nurse Practitioner Family
DX: M54.50 Low back pain, unspecified (principal); G89.29 Other chronic pain; M54.6 Pain in thoracic spine; Z87.39 Personal history of other diseases of the musculoskeletal system and connective tissue; M47.815 Spondylosis without myelopathy or radiculopathy, thoracolumbar region
CPT/HCPCS: 99204

== ENCOUNTER 2025-03-26 08:44 | Outpatient (REF) | payer OTHER, SELFPAY ==
--- NOTE | ~2025-03-26 | XR_ITS ---
EXAMINATION: XR THORACIC SPINE CLINICAL INFORMATION: M54.6 - Pain in thoracic spine COMPARISON: None available. TECHNIQUE: AP, lateral and swimmer's projection. FINDINGS: Multilevel syndesmophyte formation and marginal osteophyte formation throughout the axial skeleton. Mild endplate sclerosis at multiple levels. There is no acute cortical disruption or gross malalignment. No lytic or blastic lesions XR/XR thoracic spine 3V IMPRESSION: Multilevel spondylosis without acute fracture or listhesis. Electronically signed by: Minor Emery MD 03/26/2025 10:28 AM EDT
--- NOTE | ~2025-03-26 | XR_ITS ---
EXAMINATION: X-ray lumbar spine. CLINICAL INFORMATION: Low back pain. TECHNIQUE: AP, oblique and lateral views. COMPARISON: None FINDINGS: Small marginal osteophyte formation and mild endplate sclerosis at multiple levels of the axial skeleton. Syndesmophyte formation L3-4. There is preservation of the intervertebral disc height. No acute cortical disruption or malalignment. No lytic or blastic lesions. Sacralized vertebra. Rudimentary rib, T12. XR/XR lumbar spine 4V min IMPRESSION: Sacralized vertebra. No acute fracture or dislocation. Multilevel thoracolumbar spondylosis. Electronically signed by: Minor Emery MD 03/26/2025 10:27 AM EDT
== END 2025-03-26 08:45 | disposition home or self-care (01) ==
LOC: HO.XRAY 08:44
PROVIDERS: PCP Physician Assistant; Referring Provider Physician Assistant; Visit Provider Nurse Practitioner Family
DX: M54.50 Low back pain, unspecified (principal); G89.29 Other chronic pain; M47.816 Spondylosis without myelopathy or radiculopathy, lumbar region; M54.6 Pain in thoracic spine
CPT/HCPCS: 72072; 72110; 99202

== ENCOUNTER → 2025-03-26 09:38 | Outpatient (BNV) | payer OTHER, SELFPAY | PROVIDERS: PCP Physician Assistant; Referring Provider Physician Assistant; Visit Provider Radiology Diagnostic Radiology | DX: M54.50 Low back pain, unspecified (principal); M54.6 Pain in thoracic spine | CPT/HCPCS: 72072; 72110 ==